=== PATIENT | male | born 1935 | race Hispanic/Latino ===

== ENCOUNTER 2021-08-08 18:11 | Observation (INO) | payer SELFPAY ==
--- NOTE | 2021-08-08 18:51 | RAD REPORT ---
EXAM DESCRIPTION: CT - Head Brain Wo Cont - 08/08/2021 6:43 pm CLINICAL HISTORY: Syncope, simple, normal neuro exam Headache, drowsiness COMPARISON: No comparisons TECHNIQUE: All CT scans are performed using dose optimization technique as appropriate and may inclu de automated exposure control or mA/KV adjustment according to patient size. FINDINGS: No intracranial hemorrhage, hydrocephalus or extra-axial fluid collection.Mild generalized brain atrophy is present with mild periventricular and deep white matter chronic microvascular ische shannan changes.No areas of brain edema or evidence of midline shift. The paranasal sinuses and mastoids are clear. The calvarium is intact. Vertebral atherosclerosis. IMPRESSION: No acute intracranial abnormality.
--- NOTE | 2021-08-08 19:38 | ER ---
Nurse's Notes [facility] Name: William Saldana Age: 86 yrs Sex: Male : 1935 Arrival Date: 08/08/2021 Time: 18:20 Bed 6 Private MD: Diagnosis: Syncope Near;Weakness;Type 2 diabetes mellitus with hyperglycemia;Essential (primary) hypertension;SARS-associated coronavirus as the cause of diseases classified elsewhere;Acute kidney failure, unspecified-on chronic Presentation: 08/08 18:55 Chief complaint: EMS states: SYNCOPAL FALL AT FAMILY HOME, FROM [place] VACATION. bp Coronavirus screen: At this time, the client does not indicate any symptoms associated with coronavirus-19. Ebola Screen: No symptoms or risks identified at this time. Initial Sepsis Screen: Does the patient meet any 2 criteria? No. Patient's initial sepsis screen is negative. Does the patient have a suspected source of infection? No. Patient's initial sepsis screen is negative. Risk Assessment: Do you want to hurt yourself or someone else? Patient reports no desire to harm self or others. Onset of symptoms was August 08, 2021 at 18:00. Care prior to arrival: IV initiated. 20 GA, in the right forearm, Glucose check: 177. 18:55 Method Of Arrival: EMS: [facility] bp 18:55 Acuity: JANET 3 bp Triage Assessment: 18:57 General: Appears in no apparent distress. comfortable, Behavior is calm, cooperative, bp appropriate for age. Pain: Denies pain. EENT: No deficits noted. Neuro: Reports a syncopal episode. Cardiovascular: Rhythm is sinus rhythm. Respiratory: No deficits noted. GI: No signs and/or symptoms were reported involving the gastrointestinal system. : No signs and/or symptoms were reported regarding the genitourinary system. Derm: No deficits noted. Musculoskeletal: No deficits noted. Historical: - Allergies: 18:57 UNKNOWN ANTIBIOTIC; bp - Home Meds: 18:57 aspirin 81 mg Oral tab 81 mg daily [Active]; Metformin Oral [Active]; bp telmisartan-hydrochlorothiazide oral [Active]; Nifedipine Oral [Active]; - PMHx: 18:57 Diabetes mellitus; Hypertensive disorder; Hypercholesterolemia; bp - Immunization history:: Client reports receiving the 2nd dose of the Covid vaccine. - Social history:: Smoking status: Patient denies any tobacco usage or history of. - Family history:: not pertinent. Screenin:00 Abuse screen: Denies threats or abuse. Denies injuries from another. Nutritional bp screening: No deficits noted. Tuberculosis screening: No symptoms or risk factors identified. Fall Risk None identified. Assessment: 19:00 General: SEE TRIAGE NOTE. bp 21:21 Neuro: Level of Consciousness is awake, alert, obeys commands. 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 Cardiovascular: Heart tones S1 S2. tw5 08/09 13:18 Cardiovascular: Reports syncope. santos 13:20 Cardiovascular: Reports GI: Reports diarrhea. santos Vital Signs: 08/08 18:55 BP 136 / 66; Pulse 79; Resp 16; Temp 98.3; Pulse Ox 96% ; Weight 80 kg; bp 21:18 BP 141 / 67; Pulse 66; Resp 14; Pulse Ox 96% on R/A; tw5 ED Course: 18:20 Patient arrived in ED. ll1 18:21 Bladimir Liang MD is Attending Physician. torito 18:45 CT Head Brain wo Cont In Process Unspecified. EDMS 18:50 Arm band placed on Patient placed in an exam room, on a stretcher. ll1 18:51 Dwayne Soto, RN is Primary Nurse. bp 18:57 Triage completed. bp 19:00 Patient has correct armband on for positive identification. Bed in low position. Call bp light in reach. Side rails up X2. 19:00 Maintain EMS IV. Dressing intact. Good blood return noted. Site clean \T\ dry. Gauge \T\ bp site: 20 G R FA. 19:37 XRAY Chest (1 view) In Process Unspecified. EDMS 19:37 Jorge Marcano is Hospitalizing Provider. torito 21:18 No provider procedures requiring assistance completed. Patient admitted, IV remains in tw5 place. 08/09 08:50 Primary Nurse role handed off by Dwayne Soto, MELISSA [facility] 13:18 Jocelyn Leahy, RN is Primary Nurse. santos Administered Medications: 08/08 19:15 Drug: NS 0.9% 500 ml Route: IV; Rate: bolus; Site: right antecubital; jb4 19:45 Follow up: Response: No adverse reaction; IV Status: Completed infusion; IV Intake: jb4 500ml ; Finished from EMS bolus 20:05 Drug: NS 0.9% 1000 ml Route: IV; Rate: 125 ml/hr; Site: right antecubital; jb4 21:23 Follow up: IV Status: Infusion continued upon admission tw5 Medication: 19:00 VIS not applicable for this client. bp Point of Care Testing: Blood Glucose: 18:57 Blood Glucose: 177 mg/dL; bp Ranges: Intake: 19:45 IV: 500ml; Total: 500ml. jb4 Outcome: 19:37 Decision to Hospitalize by Provider. torito 21:18 Admitted to ER Hold. [facility] for [facility] documentation. tw5 21:18 Condition: stable 21:18 Instructed on the need for admit. 08/09 13:20 Discharged to home ambulatory. santos Condition: stable Discharge instructions given to 13:22 Patient left the ED. santos Signatures: Dispatcher [employer] EDBladimir Martinez MD MD cha Bryson, James, MELISSA RN jb4 Dwayne Soto RN RN bp Lewis, Lynsay, RN RN ll1 Wood, Tiffany tw5 Tabby-Jocelny An RN RN santos
--- NOTE | 2021-08-08 19:39 | EDPHYS ---
Physician Documentation [facility] Name: William Saldana Age: 86 yrs Sex: Male : 1935 Arrival Date: 08/08/2021 Time: 18:20 Bed 6 Private MD: ED Physician Bladimir Liang HPI: 08/08 18:33 This 86 yrs old Male presents to ER via Unassigned with complaints of Syncope, torito Weakness. 18:33 The patient has experienced syncope, lost consciousness. Onset: The symptoms/episode torito began/occurred just prior to arrival. Duration: This was a single episode, that lasted 15 minute(s). Context: occurred at home, occurred while the patient was standing. Associated injury: The patient did not suffer any apparent associated injury. Associated signs and symptoms: The patient has no apparent associated signs or symptoms. Current symptoms:. The patient has not experienced similar symptoms in the past. Historical: - Allergies: 18:57 UNKNOWN ANTIBIOTIC; bp - Home Meds: 18:57 aspirin 81 mg Oral tab 81 mg daily [Active]; Metformin Oral [Active]; bp telmisartan-hydrochlorothiazide oral [Active]; Nifedipine Oral [Active]; - PMHx: 18:57 Diabetes mellitus; Hypertensive disorder; Hypercholesterolemia; bp - Immunization history:: Client reports receiving the 2nd dose of the Covid vaccine. - Social history:: Smoking status: Patient denies any tobacco usage or history of. - Family history:: not pertinent. ROS: 18:33 Constitutional: Negative for fever, chills, and weight loss, Eyes: Negative for injury, torito pain, redness, and discharge, ENT: Negative for injury, pain, and discharge, Neck: Negative for injury, pain, and swelling, Cardiovascular: Negative for chest pain, palpitations, and edema, Respiratory: Negative for shortness of breath, cough, wheezing, and pleuritic chest pain, Abdomen/GI: Negative for abdominal pain, nausea, vomiting, diarrhea, and constipation, Back: Negative for injury and pain, : Negative for injury, bleeding, discharge, and swelling, MS/Extremity: Negative for injury and deformity, Skin: Negative for injury, rash, and discoloration, Psych: Negative for depression, anxiety, suicide ideation, homicidal ideation, and hallucinations, Allergy/Immunology: Negative for hives, rash, and allergies, Endocrine: Negative for neck swelling, polydipsia, polyuria, polyphagia, and marked weight changes, Hematologic/Lymphatic: Negative for swollen nodes, abnormal bleeding, and unusual bruising. 18:33 Neuro: Positive for syncope, weakness. Exam: 18:33 Constitutional: This is a well developed, well nourished patient who is awake, alert, torito and in no acute distress. Head/Face: Normocephalic, atraumatic. Eyes: Pupils equal round and reactive to light, extra-ocular motions intact. Lids and lashes normal. Conjunctiva and sclera are non-icteric and not injected. Cornea within normal limits. Periorbital areas with no swelling, redness, or edema. ENT: Nares patent. No nasal discharge, no septal abnormalities noted. Tympanic membranes are normal and external auditory canals are clear. Oropharynx with no redness, swelling, or masses, exudates, or evidence of obstruction, uvula midline. Mucous membranes moist. Neck: Trachea midline, no thyromegaly or masses palpated, and no cervical lymphadenopathy. Supple, full range of motion without nuchal rigidity, or vertebral point tenderness. No Meningismus. Chest/axilla: Normal chest wall appearance and motion. Nontender with no deformity. No lesions are appreciated. Cardiovascular: Regular rate and rhythm with a normal S1 and S2. No gallops, murmurs, or rubs. Normal PMI, no JVD. No pulse deficits. Respiratory: Lungs have equal breath sounds bilaterally, clear to auscultation and percussion. No rales, rhonchi or wheezes noted. No increased work of breathing, no retractions or nasal flaring. Abdomen/GI: Soft, non-tender, with normal bowel sounds. No distension or tympany. No guarding or rebound. No evidence of tenderness throughout. Back: No spinal tenderness. No costovertebral tenderness. Full range of motion. Male : Normal genitalia with no discharge or lesions. Skin: Warm, dry with normal turgor. Normal color with no rashes, no lesions, and no evidence of cellulitis. MS/ Extremity: Pulses equal, no cyanosis. Neurovascular intact. Full, normal range of motion. Neuro: Awake and alert, GCS 15, oriented to person, place, time, and situation. Cranial nerves II-XII grossly intact. Motor strength 5/5 in all extremities. Sensory grossly intact. Cerebellar exam normal. Normal gait. Psych: Awake, alert, with orientation to person, place and time. Behavior, mood, and affect are within normal limits. 18:33 Musculoskeletal/extremity: DVT Exam: No signs of deep vein thrombosis. no pain, no swelling, no tenderness, negative Homans' sign noted on exam, no appreciated bluish discoloration, no erythema, no increased warmth. 18:33 Neuro: Orientation: is normal, appropriate for stated age, no acute changes, Mentation: is normal, appropriate for stated age, no acute changes, Memory: is normal, appropriate for stated age, no acute changes, Cranial nerves: grossly normal, is grossly normal based on the patient's age, no acute changes, Cerebellar function: is grossly normal, is grossly normal based on the patient's age, no acute changes, Motor: moves all fours, strength is normal, strength is 5/5 in all extremities, Sensation: is normal, no obvious gross deficits, appropriate no acute changes, Gait: not tested. Deep tendon reflexes are 1 (trace) + in the bilateral brachioradialis, bicep, tricep and patellar and Achilles tendons, seizure activity, is not displayed by the patient. 19:46 ECG was reviewed by the Attending Physician. torito Vital Signs: 18:55 BP 136 / 66; Pulse 79; Resp 16; Temp 98.3; Pulse Ox 96% ; Weight 80 kg; bp 21:18 BP 141 / 67; Pulse 66; Resp 14; Pulse Ox 96% on R/A; tw5 MDM: 18:21 Patient medically screened. torito 18:36 Differential Diagnosis: cardiac arrhythmia, cerebrovascular accident, drug effect, GI torito bleed, idiopathic syncope, pseudo seizure, seizure, sepsis, transient ischemic attack, vasovagal episode. Data reviewed: vital signs, nurses notes, EMS record, lab test result(s), EKG, radiologic studies, CT scan, plain films. Data interpreted: insurance job titles: rate is 85 beats/min, rhythm is regular, Pulse oximetry: on room air is 98 %. Test interpretation: by ED physician or midlevel provider: ECG, plain radiologic studies. Counseling: I had a detailed discussion with the patient and/or guardian regarding: the historical points, exam findings, and any diagnostic results supporting the discharge/admit diagnosis, lab results, radiology results. 08/08 18:32 Order name: Basic Metabolic Panel; Complete Time: 21:17 [facility] 08/08 21:17 Interpretation: Normal except: NA 134; GLUC 204; BUN 28; CRE 1.71; GFR 38. 08/08 18:32 Order name: CBC with Diff; Complete Time: 20:12 [facility] 08/08 21:18 Interpretation: Normal except: CARLOS% 82.9; LYM% 7.4. 08/08 18:32 Order name: LFT's; Complete Time: 21:17 [facility] 08/08 21:18 Interpretation: Normal except: GLOB 3.8; A/G 1.0. / 18:32 Order name: Magnesium; Complete Time: 21:17 [facility] 08/08 18:32 Order name: NT PRO-BNP; Complete Time: 21:17 [facility] 08/08 18:32 Order name: PT-INR; Complete Time: 20:12 [facility] 08/08 18:32 Order name: Troponin HS; Complete Time: 21:17 [facility] 08/08 21:18 Interpretation: Reviewed. 08/08 18:32 Order name: SARS-COV-2 RT PCR (Document "Date of Onset" if Symptomatic); Complete Time: [facility] 21:08/08 21:17 Interpretation: SARSCOV2 RT PCR POSITIVE; Reviewed. 08/08 18:32 Order name: Lipase; Complete Time: 21:17 [facility] 06/ 02:57 Order name: CBC with Automated Diff; Complete Time: 07:53 EDMS 06/04 03:13 Order name: Comprehensive Metabolic Panel; Complete Time: 07:53 EDMS 06/04 03:13 Order name: Magnesium; Complete Time: 07:53 EDMS 06/04 06:07 Order name: Urine Dipstick-Ancillary; Complete Time: 07:53 EDMS 06/04 07:34 Order name: Glucose, Ancillary Testing; Complete Time: 07:53 EDMS / 18:32 Order name: XRAY Chest (1 view); Complete Time: 19:47 [facility] 08/08 18:32 Order name: EKG; Complete Time: 18:34 [facility] 08/08 18:32 Order name: Cardiac monitoring; Complete Time: 19:30 [facility] 08/08 18:32 Order name: EKG - Nurse/Tech; Complete Time: 19:30 [facility] 06/03 18:32 Order name: IV Saline Lock; Complete Time: 19:01 [facility] 08/08 18:32 Order name: Labs collected and sent; Complete Time: 19:30 [facility] 08/08 18:32 Order name: O2 Per Protocol; Complete Time: 19:01 [facility] 08/08 18:32 Order name: O2 Sat Monitoring; Complete Time: 19:01 [facility] 08/08 18:32 Order name: CT Head Brain wo Cont; Complete Time: 19:29 [facility] 08/08 18:32 Order name: Urine Dipstick-Ancillary (obtain specimen); Complete Time: 06:08 [facility] EC:46 Rate is 69 beats/min. Rhythm is regular. QRS [place] is Normal. CT interval is prolonged torito at 224 msec. QRS interval is normal. QT interval is normal. No Q waves. T waves are Normal. No ST changes noted. Clinical impression: NSR w/ Non-specific ST/T Changes, 1st degree heart block, and No evidence of ischemia. Administered Medications: 19:15 Drug: NS 0.9% 500 ml Route: IV; Rate: bolus; Site: right antecubital; jb4 19:45 Follow up: Response: No adverse reaction; IV Status: Completed infusion; IV Intake: jb4 500ml ; Finished from EMS bolus 20:05 Drug: NS 0.9% 1000 ml Route: IV; Rate: 125 ml/hr; Site: right antecubital; jb4 21:23 Follow up: IV Status: Infusion continued upon admission tw5 Point of Care Testing: Blood Glucose: 18:57 Blood Glucose: 177 mg/dL; bp Ranges: Critical Glucose Levels:Adult <50 mg/dl or >400 mg/dl <40 mg/dl or >180 mg/dl Disposition Summary: 08/08/21 19:37 Hospitalization Ordered Hospitalization Status: Observation torito Provider: Jorge Marcano cha Condition: Fair torito Problem: new torito Symptoms: have improved torito Bed/Room Type: Standard [facility] Location: [facility] ER HOLD(08/08/21 20:10) mw Room Assignment: ERHOLD-(08/08/21 20:10) mw Diagnosis - Syncope Near torito - Weakness torito - Type 2 diabetes mellitus with hyperglycemia torito - Essential (primary) hypertension torito - SARS-associated coronavirus as the cause of diseases classified elsewhere cp - Acute kidney failure, unspecified - on chronic torito Forms: - Medication Reconciliation Form torito - SBAR form torito Signatures: Dispatcher [employer] EDYuli Go RN RN mw Anderson, Corey, MD MD cha Page, Corey, PA PA cp Bryson, James, RN RN jb4 Dwayne Soto RN RN bp Brown, Sophia, PA PA sb3 Shanthi Thornton tw5 Corrections: (The following items were deleted from the chart) 20:10 19:37 Telemetry/MedSurg (observation) [facility] 20:10 19:37 [facility]
--- NOTE | 2021-08-08 19:41 | RAD REPORT ---
EXAM DESCRIPTION: RAD - Chest Single View - 08/08/2021 7:35 pm CLINICAL HISTORY: COUGH Chest pain. COMPARISON: No comparisons FINDINGS: Portable technique limits examination quality. The lungs are underinflated but grossly clear. The heart is normal in size. No displaced fractures. IMPRESSION: No acute intrathoracic process suspected.
[2021-08-08 19:48] LABS: Absolute Lymphocytes (CBC) 0.7 K/uL (0.7-4.9); Hematocrit 41.5 % (39.6-49.0); Lymphocytes % 7.4 % (15.3-44.8); MPV 8.8 fL (7.6-11.3); RBC Red Blood Cell Count 4.51 M/uL (4.33-5.43)
[2021-08-08 19:59] LABS: Protime INR 1.07
[2021-08-08] MEDS ORDERED: NA CHLORIDE 0.9% 1,000 ML ONE (20:02)
[2021-08-08 20:11] LABS: Albumin 3.7 g/dL (3.4-5.0); Bilirubin Direct 0.2 mg/dL (0-0.2); Bilirubin Total 0.9 mg/dL (0.2-1.0); Potassium 4.3 mmol/L (3.5-5.1); Protein, Total 7.5 g/dL (6.4-8.2); Troponin High Sensitivity 6.4 pg/mL (<58.9)
--- NOTE | 2021-08-08 21:52 | P.HP ---
Certification for Inpatient Patient admitted to: Observation With expected LOS: <2 Midnights Patient will require the following post-hospital care: None Practitioner: I am a practitioner with admitting privileges, knowledge of patient current condition, hospital course, and medical plan of care. Services: Services provided to patient in accordance with Admission requirements found in Title 42 Section 412.3 of the Code of Federal Regulations Patient History Date of Service: 08/08/21 Reason for admission: Fall and Syncope History of Present Illness: Patient is an 86 y/o, primarily syriac speaking, male with PMH of HTN, HLD, and NIIDM who presented to ED after syncopal episode. Patient cannot remember much that happened, he just knows that he woke up on the ground. He is here visiting from [place] visiting his family. He denies any recent changes in medication or diet. Head CT and CXR negative. Labs significant for 134, glucose 204, Cr 1.7, COVID+. He was given 1.5L in the ED. He is only complaining of sore throat during my assessment. ED provider wishes to admit patient for observation. Allergies No Known Allergies Allergy (Unverified 08/09/21 00:18) Home medications list reviewed: Yes - Past Medical/Surgical History Diabetic: Yes -: Hypertension -: Type 2 Diabetes, Non-Insulin Dependent -: Hyperlipidemia Past Surgical History: Patient denies surgical history Psychosocial/ Personal History: Patient lives in [place]. He is here visiting. - Family History Sister -: Cancer - Social History Smoking Status: Never smoker Alcohol use: No CD- Drugs: No Caffeine use: Yes Place of Residence: Home Review of Systems 10-point ROS is otherwise unremarkable ENT: Throat Pain Physical Examination - Physical Exam General: Alert, In no apparent distress HEENT: Atraumatic, PERRLA, Mucous membr. moist/pink, EOMI, Sclerae nonicteric Neck: Supple, 2+ carotid pulse no bruit, No LAD, Without JVD or thyroid abnormality Respiratory: Clear to auscultation bilaterally, Normal air movement Cardiovascular: Regular rate/rhythm, Normal S1 S2 Gastrointestinal: Normal bowel sounds, No tenderness Musculoskeletal: No tenderness Integumentary: No rashes Neurological: Normal speech, Normal strength at 5/5 x4 extr, Normal tone, Normal affect - Studies Laboratory Data (last 24 hrs) 08/08/21 19:30: PT 11.8, INR 1.07 08/08/21 19:30: WBC 8.8, Hgb 13.7, Hct 41.5, Plt Count 153 08/08/21 19:30: Sodium 134 L, Potassium 4.3, BUN 28 H, Creatinine 1.71 H, Glucose 204 H, Magnesium 2.0, Total Bilirubin 0.9, AST 16, ALT 24, Alkaline Phosphatase 83, Lipase 76 Assessment and Plan - Problems (Diagnosis) (1) Syncope and collapse Current Visit: Yes Status: Acute (2) Type 2 diabetes mellitus Current Visit: Yes Status: Acute Qualifiers: Diabetes mellitus snf insulin use: without roasterman use Diabetes mellitus complication status: with kidney complications Diabetes mellitus complication detail: with chronic kidney disease Chronic kidney disease stage 3 subtype: stage 3b (GFR 30-44) (3) ABY (acute kidney injury) Current Visit: Yes Status: Acute (4) Hypertension Current Visit: Yes Status: Acute Qualifiers: Hypertension type: primary hypertension Qualified Code(s): I10 - Essential (primary) hypertension (5) Hyperlipidemia Current Visit: Yes Status: Chronic Qualifiers: Hyperlipidemia type: unspecified Qualified Code(s): E78.5 - Hyperlipidemia, unspecified (6) COVID-19 Current Visit: Yes Status: Acute - Plan -Reason for fall and syncope is unclear at this point. Could be orthostatic or COVID related. -Monitor on telemetry overnight -Neurology consulted -Continue IVF -Incidentally covid positive, vitamin c and zinc ordered, monitor O2 sat -ACHS accu checks with mild sliding scale insulin and diabetic diet -Reconcile and continue home medications -Lovenox for VTE ppx -Full Code Discharge Plan: Home Plan to discharge in: 24 Hours - Advance Directives Does patient have a Living Will: No Does patient have a Durable POA for Healthcare: No - Code Status/Comfort Care Code Status Assessed: Yes (Full) Critical Care: No Time Spent Managing Pts Care (In Minutes): 50
[2021-08-09] MEDS ORDERED: NA CHLORIDE 0.9% 1,000 ML IV SCH (00:19)
[2021-08-09] MEDS ORDERED: ACETAMINOPHEN 500 MG TAB PO PRN (00:19)
[2021-08-09] MEDS ORDERED: ONDANSETRON 4 MG/2 ML VIAL IV PRN (00:19)
[2021-08-09 02:30] VITALS: BMI 25.9
[2021-08-09 02:55] LABS: Absolute Lymphocytes (CBC) 1.1 K/uL (0.7-4.9); Hematocrit 41.6 % (39.6-49.0); Lymphocytes % 15.3 % (15.3-44.8); MPV 8.7 fL (7.6-11.3); RBC Red Blood Cell Count 4.56 M/uL (4.33-5.43)
[2021-08-09 03:13] LABS: Albumin 3.6 g/dL (3.4-5.0); Bilirubin Total 0.8 mg/dL (0.2-1.0); Magnesium 2.1 mg/dL (1.8-2.4); Potassium 4.6 mmol/L (3.5-5.1); Protein, Total 7.1 g/dL (6.4-8.2)
[2021-08-09 06:07] LABS: Urine Blood Trace-intact (Negative); Urine Glucose 1+ (Negative); Urine Protein Trace (Negative); Urine pH 5.5 (5.0-7.0)
[2021-08-09] MEDS ORDERED: INSULIN -REGULAR HUMAN 50 UNIT/0.5 ML ML SQ SCH (07:30)
[2021-08-09] MEDS ORDERED: ENOXAPARIN 30 MG/0.3 ML SQ ONE (08:39)
[2021-08-09 08:55] VITALS: BP 180/74; TEMP 98
[2021-08-09] MEDS ORDERED: ENOXAPARIN 30 MG/0.3 ML SQ SCH (09:00)
[2021-08-09] MEDS ORDERED: NA CHLORIDE 0.9% 1,000 ML ONE (09:56)
[2021-08-09] MEDS ORDERED: PNEUMOCOCCAL VACCINE 0.5 ML IMVAC ONE (12:00)
--- NOTE | 2021-08-09 12:23 | P.DS ---
Admission Date: 08/08/21 Discharge Date: 08/09/21 Disposition: ROUTINE DISCHARGE Discharge Condition: FAIR Reason for Admission: Fall and Syncope - Problems (1) Fall Current Visit: Yes Status: Acute (2) ABY (acute kidney injury) Current Visit: Yes Status: Acute (3) COVID-19 Current Visit: Yes Status: Acute (4) Hypertension Current Visit: Yes Status: Acute Qualifiers: Hypertension type: primary hypertension Qualified Code(s): I10 - Essential (primary) hypertension (5) Type 2 diabetes mellitus Current Visit: Yes Status: Acute Qualifiers: Diabetes mellitus senior care insulin use: without oil heaterman use Diabetes mellitus complication status: with kidney complications Diabetes mellitus complication detail: with chronic kidney disease 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 Patient reported to have had a fall . He cannot remember much what happened, all he remembered was he woke up on the ground. He is here visiting from [place] visiting his family. He denied any recent changes in medication. Head CT and CXR negative. Labs significant for 134, glucose 204, Cr 1.7, COVID+. He was given 1.5L in the ED. He is only complaining of sore throat. Patient placed under observation for further management. Hospital Course: His troponin was negative. security monitor did not reveal any arrhythmia. Patient was hypertensive. His only complaint was sore throat. He tested positive for COVID-19. It is unclear if the fall was secondary to syncope or fatigue/generalized weakness. Vitals are stable. Patient is discharged to home in the care of his family. Vital Signs/Physical Exam: Temp Pulse Resp BP Pulse Ox 98.0 F 81 18 180/74 H 95 08/09/21 08:00 08/09/21 08:00 08/09/21 08:00 08/09/21 08:00 08/09/21 08:00 General: Alert, In no apparent distress, Other (Frail-appearing) HEENT: Mucous membr. moist/pink Neck: JVD not distended Respiratory: Clear to auscultation bilaterally, Normal air movement Cardiovascular: No edema, Regular rate/rhythm, Normal S1 S2 Gastrointestinal: Soft and benign, Non-distended, No tenderness Musculoskeletal: No swelling Integumentary: No rashes Neurological: Other (No focal motor deficit) Laboratory Data at Discharge: WBC 7.5 K/uL (4.3-10.9) D 08/09/21 02:33 Hgb 14.0 g/dL (13.6-17.9) 08/09/21 02:33 Hct 41.6 % (39.6-49.0) 08/09/21 02:33 Plt Count 146 K/uL (152-406) L 08/09/21 02:33 PT 11.8 SECONDS (9.5-12.5) 08/08/21 19:30 INR 1.07 08/08/21 19:30 Sodium 133 mmol/L (136-145) L 08/09/21 02:33 Potassium 4.6 mmol/L (3.5-5.1) 08/09/21 02:33 BUN 28 mg/dL (7-18) H 08/09/21 02:33 Creatinine 1.53 mg/dL (0.55-1.3) H 08/09/21 02:33 Glucose 176 mg/dL (74-106) H 08/09/21 02:33 Magnesium 2.1 mg/dL (1.8-2.4) 08/09/21 02:33 Total Bilirubin 0.8 mg/dL (0.2-1.0) 08/09/21 02:33 AST 14 U/L (15-37) L 08/09/21 02:33 ALT 24 U/L (12-78) 08/09/21 02:33 Alkaline Phosphatase 80 U/L (45-117) 08/09/21 02:33 Lipase 76 U/L (73-393) 08/08/21 19:30 Home Medications: Aspirin [Aspirin EC 81 MG] 81 mg PO DAILY #30 tablet. 08/09/21 New Medications: Aspirin [Aspirin EC 81 MG] 81 mg PO DAILY #30 tablet. Physician Discharge Instructions: PROBLEM: Syncope GOAL: Clear understanding of disease process INSTRUCTIONS: Please follow up with your primary care doctor and cardiology as discussed with Dr. Marcano during your hospitalization Diet: Heart Healthy Activity: As tolerated Diet: ADA Activity: Fall precautions Followup: NONE,NONE [Primary Care Provider] -
[2021-08-09 13:28] VITALS: O2SAT 96
--- NOTE | 2021-08-10 12:53 | EKG ---
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
== END 2021-08-09 14:21 | disposition home or self-care (01) ==
LOC: ER 18:11 → ERHOLD 22:19
PROVIDERS: ADMIT Internal Medicine; ATTEND Internal Medicine
DX: R55 Syncope and collapse (principal); N17.9 Acute kidney failure, unspecified; I12.9 Hypertensive chronic kidney disease with stage 1 through stage 4 chronic kidney disease, or unspecified chronic kidney disease; E11.22 Type 2 diabetes mellitus with diabetic chronic kidney disease; E11.65 Type 2 diabetes mellitus with hyperglycemia; N18.32 Chronic kidney disease, stage 3b; E78.5 Hyperlipidemia, unspecified; U07.1 COVID-19; Z80.9 Family history of malignant neoplasm, unspecified
CPT/HCPCS: 36415; 70450; 71045; 80048; 80053; 80076; 81003; 82947; 83690; 83735; 83880; 84484; 85025; 85610; 93005; 96360; 96361; 99285; G0378; J1650; J7030; U0003